=== PATIENT | female | born 1945 | race Two or more races ===

== ENCOUNTER 2021-02-25 10:20 | Emergency (ER) | payer OTHER ==
[~2021-02-25] VITALS: Ht 162.6 cm; Wt 68.1 kg
[2021-02-25 10:45] VITALS: BP 139/65
[2021-02-25 11:05] LABS: BILIRUBIN,URINE NEGATIVE (NEG); CLARITY,URINE CLEAR; COLOR,URINE YELLOW; NITRITE,URINE NEGATIVE (NEG); PH,URINE 8.5 (<5.0-8.0); PROTEIN,URINE 100 mg/dL (NEG-TRACE)
--- NOTE | 2021-02-25 11:10 | ED.ADGEN ---
General Adult EDM: Chief Complaint: FEVER HPI: HPI: Patient is a 75 year old female, accompanied by her son, who presents to the emergency department with complaints of fever, headache, and foul- smelling urine for the last week. She states she was seen by her primary care doctor on 02/23/21 who prescribed her naproxen. Patient reports that she was tested for COVID-19 3 days ago and her result was negative. She denies any dysuria, hematuria, or increased urinary frequency. Patient denies any abdominal pain, back pain, nausea, vomiting, diarrhea, chest pain, shortness of breath, cough, sore throat, or photophobia. Patient reports that the pain is behind both of her eyes. She states that the last time she felt like she had a fever was 2 days ago. She currently rates her headache a 7 out of 10 on the pain scale, she denies any alleviating or exacerbating factors. She denies any numbness, tingling, or weakness. She reports generalized malaise. Review of Systems: Review of Systems: Complete ROS is negative unless otherwise noted in HPI. Current Medications: Current Medications Medications (Trade) Dose Ordered Sig/Abdoul Start Time Stop Time Status Last Admin Dose Admin Calcium Gluconate (Calcium Gluconate) 1,000 mg 1X ONCE 02/25/21 13:00 02/25/21 13:01 DC 02/25/21 13:07 1,000 MG Ceftriaxone Sodium (Rocephin) 1 gm 1X ONCE 02/25/21 14:00 02/25/21 14:01 Allergies: Allergies: Allergies Coded Allergies Type Severity Reaction Last Updated Verified No Known Drug Allergies 02/25/21 No Physical Exam: PE: See Above Constitutional: Well developed, well nourished, no acute distress, non-toxic appearance. [] HENT: Normocephalic, atraumatic, bilateral external ears normal, nose normal. [] Eyes: PERRLA, EOMI, conjunctiva normal, no discharge. [] Neck: Normal range of motion, no stridor. [] Cardiovascular:Heart rate regular rhythm, no murmur Lungs & Thorax: Respirations even and unlabored, no retractions, no respiratory distress, lungs CTA Abdomen: soft, no tenderness, bowel sounds active, no palpable mass, no rebound tenderness, no guarding Back: Nontender, no CVA tenderness Skin: Warm, dry, no erythema, no rash. [] Extremities: No cyanosis, ROM intact, no edema. [] Neurologic: Alert and oriented X 3, normal motor, normal sensory, no focal deficits noted. [] Psychologic: Affect normal, judgement normal, mood normal. [] Current Patient Data: Labs: Laboratory Tests Test 02/25/21 10:50 02/25/21 11:04 02/25/21 11:34 Urine Collection Type Void Urine Color Yellow Urine Clarity Clear Urine pH 8.5 (<5.0-8.0) Urine Specific Palms 1.015 (1.000-1.030) Urine Protein 100 mg/dL (NEG-TRACE) Urine Glucose (UA) Negative mg/dL (NEG) Urine Ketones (Stick) Negative mg/dL (NEG) Urine Blood Large (NEG) Urine Nitrite Negative (NEG) Urine Bilirubin Negative (NEG) Urine Urobilinogen Dipstick 2.0 mg/dL (0.2 mg/dL) Urine Leukocyte Esterase Small (NEG) Urine RBC Tntc /HPF (0-2) Urine WBC 11-20 /HPF (0-4) Urine Squamous Epithelial Cells Occ /LPF Urine Bacteria Moderate /HPF (0-FEW) White Blood Count 10.5 x10^3/uL (4.0-11.0) Red Blood Count 4.20 x10^6/uL (3.50-5.40) Hemoglobin 12.2 g/dL (12.0-15.5) Hematocrit 36.3 % (36.0-47.0) Mean Corpuscular Volume 86 fL (79-100) Mean Corpuscular Hemoglobin 29 pg (25-35) Mean Corpuscular Hemoglobin Concent 34 g/dL (31-37) Red Cell Distribution Width 13.6 % (11.5-14.5) Platelet Count 249 x10^3/uL (140-400) Neutrophils (%) (Auto) 81 % (31-73) H Lymphocytes (%) (Auto) 7 % (24-48) L Monocytes (%) (Auto) 12 % (0-9) H Eosinophils (%) (Auto) 0 % (0-3) Basophils (%) (Auto) 0 % (0-3) Neutrophils # (Auto) 8.5 x10^3/uL (1.8-7.7) H Lymphocytes # (Auto) 0.7 x10^3/uL (1.0-4.8) L Monocytes # (Auto) 1.3 x10^3/uL (0.0-1.1) H Eosinophils # (Auto) 0.0 x10^3/uL (0.0-0.7) Basophils # (Auto) 0.0 x10^3/uL (0.0-0.2) Lactic Acid Level 1.0 mmol/L (0.4-2.0) Sodium Level 139 mmol/L (136-145) Potassium Level 3.8 mmol/L (3.5-5.1) Chloride Level 104 mmol/L (98-107) Carbon Dioxide Level 25 mmol/L (21-32) Anion Gap 10 (6-14) Blood Urea Nitrogen 10 mg/dL (7-20) Creatinine 0.8 mg/dL (0.6-1.0) Estimated GFR (Cockcroft-Gault) 69.7 BUN/Creatinine Ratio 13 (6-20) Glucose Level 129 mg/dL (70-99) H Calcium Level 7.9 mg/dL (8.5-10.1) L Magnesium Level 1.9 mg/dL (1.8-2.4) Total Bilirubin 0.4 mg/dL (0.2-1.0) Aspartate Amino Transferase (AST) 29 U/L (15-37) Alanine Aminotransferase (ALT) 18 U/L (14-59) Alkaline Phosphatase 122 U/L (46-116) H Total Protein 6.6 g/dL (6.4-8.2) Albumin 2.7 g/dL (3.4-5.0) L Albumin/Globulin Ratio 0.7 (1.0-1.7) L Laboratory Tests 02/25/21 11:04 Laboratory Tests 02/25/21 11:34 Vital Signs: Vital Signs Date Time Temp Pulse Resp B/P (MAP) Pulse Ox O2 Delivery O2 Flow Rate FiO2 02/25/21 10:45 99.8 94 19 139/65 (89) 98 Room Air 99.8 EKG: EKG: [] Heart Score: C/O Chest Pain: No Risk Scores: Score 0 - 3: 2.5% MACE over next 6 weeks - Discharge Home Score 4 - 6: 20.3% MACE over next 6 weeks - Admit for Clinical Observation Score 7 - 10: 72.7% MACE over next 6 weeks - Early Invasive Strategies Radiology/Procedures: Radiology/Procedures: PROCEDURE: CHEST AP ONLY AP chest. HISTORY: Fever AP view was taken of the chest. Patient is not taken a deep inspiration. There is elevation the right diaphragm. There is linear scarring or atelectasis in the left lung. There are no other acute infiltrates. IMPRESSION: 1. Left lung linear scarring or atelectasis without other infiltrates. Electronically signed by: Theron Geronimo MD (02/25/2021 11:27 AM) [id number][] PROCEDURE: CT ABDOMEN PELVIS WO CONTRAST EXAM: Abdomen and pelvis CT without intravenous contrast. HISTORY: Hematuria. Fever. TECHNIQUE: Computed tomographic images of the abdomen and pelvis were obtained without contrast. Multiplanar reformatting was performed. *One or more of the following individualized dose reduction techniques were utilized for this examination: 1. Automated exposure control. 2. Adjustment of the mA and/or kV according to patient size. 3. Use of iterative reconstruction technique. COMPARISON: None. FINDINGS: Evaluation of the lower thorax demonstrates bilateral lower lobe atelectasis and pleural parenchyma scarring. There may be superimposed interstitial infiltrate. There is a 4 mm groundglass nodule within the right middle lobe. The heart is mildly enlarged. There is a small hiatal hernia. There are small hypodense lesions within the liver, the largest of which are consistent with cysts. The left hepatic lobe is prominent in size. There is no convincing hepatic surface nodularity to suggest cirrhosis. There is cholelithiasis. The pancreas, spleen and adrenal glands are unremarkable. There is mild right hydronephrosis and hydroureter with perinephric and perirenal stranding. There is a 3 mm calcification along the course of the distal right ureter which appears to be a pelvic phlebolith rather than distal ureteral stone. There is mild bladder wall thickening. There is a slightly prominent left renal collecting system without sherri hydronephrosis. There is no appendicitis. There is no bowel obstruction. The aorta is normal in caliber. There are uterine parenchymal and vascular calcifications. There is no lymphadenopathy. There is no suspicious osseous lesion. There is grade 1 anterolisthesis of L4 on L5, with associated severe central canal stenosis at this level. There are few benign bone islands. IMPRESSION: 1. Mild right hydronephrosis and hydroureter with associated perinephric and perirenal stranding. There is a calcification along the course of the distal ureter which appears to be a phlebolith rather than distal stone. The possibility of a recently passed renal stone is not excluded. The possibility of superposed cystitis and possible ascending urinary tract infection is also not excluded. 2. Bilateral lower lobe atelectasis and scarring. There may be superimposed interstitial infiltrate. No consolidated pneumonia is seen. 3. Hepatic cysts. 4. Cholelithiasis. 5. 4 mm right middle lobe pulmonary nodule. Follow-up can be performed in one year if there are risk factors for for neoplasm. Course & Med Decision Making: Course & Med Decision Making Pertinent Labs and Imaging studies reviewed. (See chart for details) CBC is unremarkable; CMP revealed a blood glucose of 129, calcium of 7.9 (patient was given 1000 mg of IV calcium in the ER), alk phos today to 122 otherwise unremarkable; patient's UA revealed too many to count red blood cells, 11-20 white blood cells, and moderate bacteria and no nitrites. Patient was given 1 g of IV Rocephin in the emergency department. Chest x-ray revealed no acute findings. CT abdomen pelvis revealed: 1. Mild right hydronephrosis and hydroureter with associated perinephric and perirenal stranding. There is a calcification along the course of the distal ureter which appears to be a phlebolith rather than distal stone. The possibility of a recently passed renal stone is not excluded. The possibility of superposed cystitis and possible ascending urinary tract infection is also not excluded. 2. Bilateral lower lobe atelectasis and scarring. There may be superimposed interstitial infiltrate. No consolidated pneumonia is seen. 3. Hepatic cysts. 4. Cholelithiasis. 5. 4 mm right middle lobe pulmonary nodule. Follow-up can be performed in one year if there are risk factors for for neoplasm. We will treat patient for urinary tract infection/pyelonephritis with Levaquin. I encouraged patient to increase clear fluids avoid bladder irritants. Follow- up with primary care doctor next Sunday, return to the ER if symptoms worsen or fever develops. Patient and her son verbalized an understanding of home care, medications, follow-up, and return to ED instructions and were in agreement with the plan of care. [] Jessica Disclaimer: Jessica Disclaimer: This electronic medical record was generated, in whole or in part, using a voice recognition dictation system. Departure Departure Impression: Primary Impression: Urinary tract infection Disposition: HOME / SELF CARE / HOMELESS Condition: STABLE Patient Instructions: Pyelonephritis, Adult, [id number] Additional Instructions: Fill prescription(s) and take as directed. Avoid bladder irritants such as ca ffeine, carbonation, and spicy foods. Increase clear fluids. Follow up with your primary care doctor in 1-2 days, return to the ER if symptoms worsen or fever develops. Scripts Levofloxacin (LEVOFLOXACIN) 750 Mg Tablet 1 TAB PO DAILY, #5 TAB 0 Refills Prov: LUCIAN DEWITT APRN 02/25/21 Problem Qualifiers Primary Impression: Urinary tract infection Urinary tract infection type: acute pyelonephritis Qualified Codes: N10 - Acute pyelonephritis LUCIAN DEWITT APRN February 25, 2021 11:09
[2021-02-25 11:13] LABS: BACTERIA,URINE MODERATE /HPF (0-FEW); RBC,URINE TNTC /HPF (0-2)
--- NOTE | 2021-02-25 11:29 | RAD ---
AP chest. HISTORY: Fever AP view was taken of the chest. Patient is not taken a deep inspiration. There is elevation the right diaphragm. There is linear scarring or atelectasis in the left lung. There are no other acute infilt rates. IMPRESSION: 1. Left lung linear scarring or atelectasis without other infiltrates. Electronically signed by: Theron Geronimo MD (02/25/2021 11:27 AM) [id number]
[2021-02-25 11:41] LABS: BASO % 0 % (0-3); EOS % 0 % (0-3); HEMATOCRIT 36.3 % (36.0-47.0); HEMOGLOBIN 12.2 g/dL (12.0-15.5); LYMPH # 0.7 x10^3/uL (1.0-4.8); LYMPH % 7 % (24-48); MEAN CORPUSCULAR HEMOGLOBIN 29 pg (25-35); MEAN CORPUSCULAR HGB CONC 34 g/dL (31-37); MEAN CORPUSCULAR VOLUME 86 fL (79-100); MONO # 1.3 x10^3/uL (0.0-1.1); MONO % 12 % (0-9); NEUT # 8.5 x10^3/uL (1.8-7.7); NEUT % 81 % (31-73); PLATELET COUNT 249 x10^3/uL (140-400); RED CELL DISTRIBUTION WIDTH 13.6 % (11.5-14.5); WHITE BLOOD COUNT 10.5 x10^3/uL (4.0-11.0)
[2021-02-25 12:14] LABS: CALCIUM 7.9 mg/dL (8.5-10.1); CREATININE 0.8 mg/dL (0.6-1.0); GFR 69.7; POTASSIUM 3.8 mmol/L (3.5-5.1)
[2021-02-25 12:20] LABS: ALBUMIN 2.7 g/dL (3.4-5.0); ALBUMIN/GLOBULIN RATIO 0.7 (1.0-1.7); MAGNESIUM 1.9 mg/dL (1.8-2.4); TOTAL BILIRUBIN 0.4 mg/dL (0.2-1.0); TOTAL PROTEIN 6.6 g/dL (6.4-8.2)
[2021-02-25] MEDS ORDERED: CALCIUM GLUCONATE 1,000 MG/10 ML VIAL. IVP ONE (13:00)
--- NOTE | 2021-02-25 13:05 | RAD ---
EXAM: Abdomen and pelvis CT without intravenous contrast. HISTORY: Hematuria. Fever. TECHNIQUE: Computed tomographic images of the abdomen and pelvis were obtained without contrast. Mult iplanar reformatting was performed. *One or more of the following individualized dose reduction techniques were utilized for this examina tion: 1. Automated exposure control. 2. Adjustment of the mA and/or kV according to patient size. 3. Use of iterative reconstruction technique. COMPARISON: None. FINDINGS: Evaluation of the lower thorax demonstrates bilateral lower lobe atelectasis and pleural pa renchyma scarring. There may be superimposed interstitial infiltrate. There is a 4 mm groundglass nod ule within the right middle lobe. The heart is mildly enlarged. There is a small hiatal hernia. There are small hypodense lesions within the liver, the largest of which are consistent with cysts. The le ft hepatic lobe is prominent in size. There is no convincing hepatic surface nodularity to suggest ci rrhosis. There is cholelithiasis. The pancreas, spleen and adrenal glands are unremarkable. There is mild right hydronephrosis and hydroureter with perinephric and perirenal stranding. There is a 3 mm calcification along the course of the distal right ureter which appears to be a pelvic phlebo lith rather than distal ureteral stone. There is mild bladder wall thickening. There is a slightly pr ominent left renal collecting system without sherri hydronephrosis. There is no appendicitis. There is no bowel obstruction. The aorta is normal in caliber. There are ut erine parenchymal and vascular calcifications. There is no lymphadenopathy. There is no suspicious os seous lesion. There is grade 1 anterolisthesis of L4 on L5, with associated severe central canal sten osis at this level. There are few benign bone islands. IMPRESSION: 1. Mild right hydronephrosis and hydroureter with associated perinephric and perirenal stranding. The re is a calcification along the course of the distal ureter which appears to be a phlebolith rather t woodward distal stone. The possibility of a recently passed renal stone is not excluded. The possibility o f superposed cystitis and possible ascending urinary tract infection is also not excluded. 2. Bilateral lower lobe atelectasis and scarring. There may be superimposed interstitial infiltrate. No consolidated pneumonia is seen. 3. Hepatic cysts. 4. Cholelithiasis. 5. 4 mm right middle lobe pulmonary nodule. Follow-up can be performed in one year if there are risk factors for for neoplasm. Electronically signed by: Vane Mckeon MD (02/25/2021 1:03 PM) [id number]
[2021-02-25] MEDS ORDERED: cefTRIAXone IV Push 1 GM VIAL. IVP ONE (14:00)
[2021-02-25] MEDS ORDERED: LEVO750T5 PO (14:11)
--- NOTE | 2021-02-25 20:23 | EKG ---
[facility] [address] [place] [id number] Test Date: 2021-02-25 Test Time: 10:54:13 Pat Name: MIHIR RUBIN Department: Room: Gender: F [employer] Director: : 1945 Requested By: LUCIAN DEWITT Order Number: [id number] Reading MD: Measurements Intervals [place] Rate: 89 P: -39 [place]: 62 QRS: -10 QRSD: 102 T: 54 QT: 408 QTc: 504 Interpretive Statements SINUS RHYTHM LEFTWARD AXIS CONSIDER LEFT VENTRICULAR HYPERTROPHY ST & T ABNORMALITY, CONSIDER HIGH LATERAL ISCHEMIA OR LEFT VENTRICULAR STRAIN ABNORMAL ECG RI6.01 No previous ECG available for comparison
== END 2021-02-25 15:03 | disposition home or self-care (01) ==
LOC: ER 10:20
DX: N39.0 Urinary tract infection, site not specified (principal); R51.9 Headache, unspecified
CPT/HCPCS: 36415; 71045; 74176; 80053; 81001; 83605; 83735; 85025; 87040; 87086; 93005; 96374; 96375; 99285; J0610; J0696